=== PATIENT | female | born 1950 | race Caucasian/White ===

== ENCOUNTER → 2017-01-01 | Outpatient (CLI) | payer BC ==
[~2017-01-01] MED LIST: ADVIN25/60 INH; ESTVR2 VAGRING; MELO7.5T5 PO; VLT500 PO; ZLF/50 PO
[2017-01-01 14:16] LABS: BASO % 0.5 %; BASO ABS # 0.02 K/uL (0-0.2); COMPLETE YES; EOS % 0.7 %; HEMATOCRIT 40.3 % (37-47); IG% 0.2 %; LYMPH ABS # 1.42 K/uL (1.2-3.4); MEAN CELL VOLUME 94.4 fL (80-100); MEAN PLATELET VOLUME 10.4 fL (7.4-10.4); MONO % 7.4 %; NEUT % 57.2 %; PLATELET COUNT 211 K/uL (130-400); RED BLOOD COUNT 4.27 M/uL (4.2-5.4); WHITE BLOOD COUNT 4.18 K/uL (4.8-10.8)
[2017-01-01 14:52] LABS: URINE APPEARANCE CLEAR (CLEAR); URINE BILIRUBIN NEG (NEG); URINE COLOR YELLOW; URINE EPITHELIAL CELL AUTO 0-5 /lpf (0-5); URINE NITRITE NEG (NEG); UROBILINOGEN NEG (NEG)
[2017-01-01 14:57] LABS: ALT/SGPT 23 U/L (12-78); AST/SGOT 18 U/L (15-37); BLOOD UREA NITROGEN 15 mg/dl (7-18); BUN/CREATININE RATIO 17.7 (10-20); CALCIUM 8.9 mg/dl (8.5-10.1); CARBON DIOXIDE 28 mmol/L (21-32); CHLORIDE 104 mmol/L (98-107); CREATININE 0.82 mg/dl (0.60-1.20); GLUCOSE 104 mg/dl (70-99); MANUAL MICROSCOPIC REQUIRED? NO; POTASSIUM 3.6 mmol/L (3.5-5.1); REVIEW REQ? NO; SODIUM 141 mmol/L (136-145)
[2017-01-01 15:07] LABS: ALB/GLOB RATIO 1.3 (0.9-2); ALKALINE PHOSPHATASE 63 U/L (45-117)
[2017-01-07 23:33] LABS: GLIADIN DEAMIDATED IgA AB 5 UNITS (<20); GLIADIN DEAMIDATED IgG AB 4 UNITS (<20); IGA SERUM 190 mg/dL (81-463); RETICULIN IgA AB Negative (Negative); TIS TRANS IGA 1 U/mL (<4)
== END | disposition home or self-care (01) ==
LOC: C.LAB1850 13:09
PROVIDERS: ATTEND Internal Medicine Pulmonary Disease
DX: R63.4 Abnormal weight loss (principal); R31.29 Other microscopic hematuria

== ENCOUNTER → 2017-01-07 | Outpatient (CLI) | payer BC ==
--- NOTE | 2017-01-07 10:45 | DIAGNOSTIC IMAGING REPORT ---
ABDOMEN COMPLETE (US) CLINICAL HISTORY: Abnormal weight loss, hematuria. COMPARISON STUDY: No previous studies for comparison. FINDINGS: The pancreas appear normal as visualized. No shadowing gallbladder calculi were visualized. There is a 4 mm echogenic nonshadowing nonmobile focus within the gallbladder consistent with a polyp. Additional tiny polyps are suspected. There is no ductal dilatation. The common bile duct measures 3 mm. The liver appears sonographically normal. The spleen measured 10 cm. No splenic masses are visualized. The right kidney measured 10.7 cm in length. The left kidney measured 10.2 cm in length. No focal renal masses are visualized. There is no hydronephrosis. The abdominal aorta appeared unremarkable. IMPRESSION: Small gallbladder polyps. No shadowing calculi identified. Ultrasonographically normal liver, pancreas, spleen, and kidneys. No ductal dilatation. Electronically signed by: Chad Epstein M.D. 01/07/2017 10:44 AM Dictated Date/Time: 01/07/2017 10:41 AM
== END | disposition home or self-care (01) ==
LOC: C.ULTR 09:57
PROVIDERS: ATTEND Internal Medicine Pulmonary Disease
DX: R31.29 Other microscopic hematuria (principal); R63.4 Abnormal weight loss; K82.4 Cholesterolosis of gallbladder

== ENCOUNTER → 2017-06-27 | Outpatient (CLI) | payer BC ==
--- NOTE | 2017-06-27 16:08 | MAMMOGRAPHY REPORT ---
BILATERAL DIGITAL SCREENING MAMMOGRAM WITH CAD: 06/27/2017 CLINICAL HISTORY: Routine screening. TECHNIQUE: Current study was also evaluated with a Computer Aided Detection (CAD) system. Bilateral CC and MLO views were obtained. COMPARISON: Comparison is made to exams dated: 06/13/2016 mammogram, 05/23/2015 mammogram, 05/20/2014 m ammogram, 05/14/2013 mammogram, 05/11/2012 mammogram, and 04/30/2011 mammogram - [facility] nter. BREAST COMPOSITION: The tissue of both breasts is heterogeneously dense, which may obscure small mas ses. FINDINGS: No suspicious masses, calcifications, or areas of architectural distortion are noted in ei ther breast. There has been no significant interval change compared to prior exams. IMPRESSION: ACR BI-RADS CATEGORY 1: NEGATIVE There is no mammographic evidence of malignancy. A 1 year screening mammogram is recommended. The pa tient will receive written notification of the results. Approximately 10% of breast cancers are not detected with mammography. A negative mammographic report should not delay biopsy if a clinically suggestive mass is present. Jennifer Garland M.D. /:06/27/2017 13:42:59 Cut Out Press Operator: Aleisha MOELLER(Dev)([place]), [facility] letter sent: Normal 1/2 BI-RADS Code: ACR BI-RADS Category 1: Negative
== END | disposition home or self-care (01) ==
LOC: C.MAMM 13:18
PROVIDERS: ATTEND Obstetrics & Gynecology
DX: Z12.31 Encounter for screening mammogram for malignant neoplasm of breast (principal)

== ENCOUNTER → 2017-07-17 | Outpatient (CLI) | payer BC | END | disposition home or self-care (01) | LOC: C.PAPS 16:11 | PROVIDERS: ATTEND Obstetrics & Gynecology | DX: Z01.419 Encounter for gynecological examination (general) (routine) without abnormal findings (principal) ==

== ENCOUNTER → 2017-08-18 | Outpatient (CLI) | payer BC | END | disposition home or self-care (01) | LOC: C.MAMM 08:50 | PROVIDERS: ATTEND Obstetrics & Gynecology | DX: M81.0 Age-related osteoporosis without current pathological fracture (principal); M85.89 Other specified disorders of bone density and structure, multiple sites; Z13.820 Encounter for screening for osteoporosis ==